=== PATIENT | male | born 1955 | race Caucasian/White ===

== ENCOUNTER 2020-05-17 01:40 | Inpatient (IN) | payer MEDICARE, MEDICAID ==
[~2020-05-17] VITALS: Ht 182.9 cm; Wt 137.2 kg
[~2020-05-17 01:40] MED LIST: APIX5TAB PO; ASPI-650 PO; CARV6.2512 PO; FURO40TA6 PO; LISI-167 PO; NICO-487 TD; SPIR25TA PO
--- NOTE | 2020-05-17 02:04 | NUR ---
PT CAME IN TONIGHT DUE TO FEELING LIKE HEART WAS RACING. PT IS DIAPHORETIC, COLOR WNL. PT STATES THIS HAS BEEN ON GOING FOR ABOUT 3 DAYS. PT REPORTS ITS HARD TO SLEEP BECAUSE IT MAKES HIM FEEL ANXIOUS. PULSES 2+, GROSS NEURO INTACT. PT DENIES CHEST PAIN . PT ON SPO2/BP/ECG MONITORING. TACHY IN THE 140S-150S. CARI TAYLOR AT BS FOR EVAL AND POC. WCTM.
[2020-05-17] MEDS ORDERED: ATOR10TA9 PO (02:09)
[2020-05-17] MEDS ORDERED: DILTIAZEM 5 MG/ML, 5ML ONE (02:12)
[2020-05-17 02:24] LABS: BASOPHILS # (AUTO) 0.06 x10^3/uL (0-0.1); BASOPHILS % (AUTO) 1 % (0-1); EOSINOPHILS # (AUTO) 0.51 x10^3/uL (0-0.4); EOSINOPHILS % (AUTO) 6 % (1-7); LYMPHOCYTES # (AUTO) 2.09 x10^3/uL (1-3.4); LYMPHOCYTES % (AUTO) 23 % (22-44); MD NO; MEAN CORPUSCULAR HEMOGLOBIN 32.2 pg (27.5-34.5); MEAN CORPUSCULAR HGB CONC 33.1 g/dL (33.2-36.2); MEAN PLATELET VOLUME 8.7 fL (7.4-10.4); MONOCYTES # (AUTO) 0.77 x10^3/uL (0.2-0.8); MONOCYTES % (AUTO) 8 % (2-9); NEUTROPHILS # (AUTO) 5.78 x10^3/uL (1.8-6.8); NEUTROPHILS % (AUTO) 63 % (42-75); PLATELET COUNT 245 x10^3/uL (130-400); RED BLOOD COUNT 4.85 x10^6/uL (4.38-5.82); RED CELL DISTRIBUTION WIDTH 14.1 % (9.4-14.8)
[2020-05-17] MEDS ORDERED: SODIUM CHLORIDE FLUSH 10ML SYR IVF ONE (02:30)
[2020-05-17] MEDS ORDERED: DILTIAZEM 5 MG/ML, 5ML IV ONE (02:30)
[2020-05-17 02:33] LABS: ALANINE AMINOTRANSFERASE 18 U/L (12-78); ALBUMIN 3.3 g/dL (3.4-5.0); ANION GAP 7 mmol/L (5-15); CALCIUM 8.4 mg/dL (8.5-10.1); CHLORIDE 109 mmol/L (98-107); CREATININE 1.65 mg/dL (0.7-1.3)
[2020-05-17 02:37] LABS: ALKALINE PHOSPHATASE 107 U/L (45-117); BILIRUBIN,TOTAL 0.7 mg/dL (0.2-1.0); INTERNATIONAL NORMALIZED RATIO 0.94 (0.93-1.1); TOTAL PROTEIN 8.2 g/dL (6.4-8.2); TROPONIN I 0.092 ng/mL (0.000-0.045)
[2020-05-17] MEDS ORDERED: DILTIAZEM 125 MG in SODIUM CHLORIDE 0.9% 100 ML IV SCH ×2 (03:04→04:30)
[2020-05-17] MEDS ORDERED: FUROSEMIDE 40 MG/4 ML ONE (03:10)
[2020-05-17] MEDS ORDERED: ASPIRIN 81 MG TABLET CHEW ONE (03:10)
--- NOTE | 2020-05-17 03:15 | NUR ---
LATE ENTRY: PT MEDICATED PER MAR. HEART RATE STILL RUNNING AT SAME RATE. NO CURRENT CHANGES IN CONDITION. PT PROVIDED URINAL AND LIGHTS DIMMED FOR COMFORT, NAD, RESP WNL. BP SLIGHTLY LOWER THAN WHEN TRIAGED DUE TO EARLIER INTERVENTIONS BUT PT DENIES ANY DIZZINESS, WEAKNESS AND NO CHANGES IN MENTATION. WCTM. WAITING FOR ADMIT BED.
[2020-05-17] MEDS ORDERED: ASPIRIN 81 MG TABLET CHEW PO ONE (03:30)
[2020-05-17] MEDS ORDERED: FUROSEMIDE 40 MG/4 ML IVPush ONE (03:30)
--- NOTE | 2020-05-17 03:45 | NUR ---
report called to kleber camejo, pt care to be transferred upon arrival to the floor. Reji MOORE MD notified of BP. WCTM.
--- NOTE | 2020-05-17 03:52 | NUR ---
DR. DSOUZA AT BEDSIDE FOR ADMIT AT THIS TIME
[2020-05-17] MEDS ORDERED: ACETAMINOPHEN 325 MG TABLET PO PRN (04:30)
[2020-05-17] MEDS ORDERED: ONDANSETRON 2MG/ML, 2ML IVPush PRN (04:30)
[2020-05-17] MEDS ORDERED: TRAZODONE 50MG TABLET PO PRN (04:30)
[2020-05-17] MEDS ORDERED: morphine SULFATE 10 MG/ML, 1ML IVPush PRN (04:30)
[2020-05-17 04:36] VITALS: BP 128/78
[2020-05-17] MEDS: NICOTINE 14MG/24 HR PATCH.TD24 TD SCH (04:52)
[2020-05-17 07:30] VITALS: BP 118/78
[2020-05-17] MEDS: SPIRONOLACTONE 25 MG TABLET PO SCH (10:49)
[2020-05-17] MEDS: CARVEDILOL 6.25 MG TABLET PO SCH ×2 (10:49→20:46)
[2020-05-17] MEDS: FUROSEMIDE 40 MG/4 ML IV SCH ×2 (10:49→17:53)
[2020-05-17] MEDS: APIXABAN 5 MG TABLET PO SCH ×2 (10:49→20:46)
[2020-05-17 12:36] LABS: TROPONIN I 0.062 ng/mL (0.000-0.045)
[2020-05-17 13:26] VITALS: BP_SYST 114; BP_SYST 99; BP_DIAS 51; BP_DIAS 74
[2020-05-17 13:32] LABS: MICROSCOPIC NOT IND
[2020-05-17 17:19] LABS: TROPONIN I 0.068 ng/mL (0.000-0.045)
[2020-05-17 20:41] VITALS: BP 159/87
[2020-05-17] MEDS ORDERED: ATORVASTATIN 10 MG TABLET PO SCH (21:00)
[2020-05-18 01:18] VITALS: BP 146/89
[2020-05-18] MEDS: NICOTINE 14MG/24 HR PATCH.TD24 TD SCH (04:09)
[2020-05-18 05:14] LABS: BASOPHILS # (AUTO) 0.02 x10^3/uL (0-0.1); BASOPHILS % (AUTO) 0 % (0-1); EOSINOPHILS % (AUTO) 6 % (1-7); LYMPHOCYTES # (AUTO) 1.41 x10^3/uL (1-3.4); LYMPHOCYTES % (AUTO) 21 % (22-44); MD NO; MEAN CORPUSCULAR HEMOGLOBIN 32.2 pg (27.5-34.5); MEAN CORPUSCULAR HGB CONC 33.2 g/dL (33.2-36.2); MEAN PLATELET VOLUME 8.5 fL (7.4-10.4); MONOCYTES # (AUTO) 0.44 x10^3/uL (0.2-0.8); MONOCYTES % (AUTO) 6 % (2-9); NEUTROPHILS # (AUTO) 4.55 x10^3/uL (1.8-6.8); NEUTROPHILS % (AUTO) 67 % (42-75); PLATELET COUNT 195 x10^3/uL (130-400); RED BLOOD COUNT 4.59 x10^6/uL (4.38-5.82); RED CELL DISTRIBUTION WIDTH 13.8 % (9.4-14.8)
[2020-05-18 05:16] LABS: ANION GAP 6 mmol/L (5-15); CALCIUM 8.4 mg/dL (8.5-10.1); CHLORIDE 108 mmol/L (98-107); CHOLESTEROL, TOTAL 134 mg/dL (140-239); CREATININE 1.37 mg/dL (0.7-1.3); TRIGLYCERIDES 76 mg/dL (50-200); VLDL CHOLESTEROL 15 mg/dL (0-25)
[2020-05-18 05:20] LABS: CHOL/HDL RATIO 2.9; HDL CHOL % 34 % (26-37); HDL CHOLESTEROL (DIRECT) 46 mg/dL (40-60); LDL CHOLESTEROL,CALCULATED 73 mg/dL (54-169); LDL/HDL RATIO 1.6 (0.5-3.0)
[2020-05-18 08:14] VITALS: BP 126/86
[2020-05-18] MEDS: APIXABAN 5 MG TABLET PO SCH (10:06)
[2020-05-18] MEDS: FUROSEMIDE 40 MG/4 ML IV SCH (10:06)
[2020-05-18] MEDS: SPIRONOLACTONE 25 MG TABLET PO SCH (10:06)
[2020-05-18] MEDS: CARVEDILOL 6.25 MG TABLET PO SCH (10:07)
== END 2020-05-18 12:56 | disposition home or self-care (01) | DRG 280 ==
LOC: ED 02:34 → EDIP 03:14 → 5SO 03:50
PROVIDERS: ADMIT Family Medicine; ATTEND Internal Medicine
DX: I11.0 Hypertensive heart disease with heart failure (principal); I21.A1 Myocardial infarction type 2; N17.0 Acute kidney failure with tubular necrosis; I48.20 Chronic atrial fibrillation, unspecified; Z68.41 Body mass index [BMI] 40.0-44.9, adult; D68.69 Other thrombophilia; I50.23 Acute on chronic systolic (congestive) heart failure; E66.01 Morbid (severe) obesity due to excess calories; E78.5 Hyperlipidemia, unspecified; I08.1 Rheumatic disorders of both mitral and tricuspid valves; F17.210 Nicotine dependence, cigarettes, uncomplicated; Z79.01 Long term (current) use of anticoagulants; Z79.899 Other long term (current) drug therapy; Z82.49 Family history of ischemic heart disease and other diseases of the circulatory system
CPT/HCPCS: 36415; 71045; 80048; 80053; 80061; 81003; 83735; 83880; 84100; 84132; 84145; 84443; 84484; 85025; 85610; 85730; 87040; 93005; 93306; 96374; 96375; 99285; G0378; J1940